=== PATIENT | female | born 1985 | race Caucasian/White ===

== ENCOUNTER 2018-04-08 14:08 | Emergency (ER) | payer OTHER ==
[~2018-04-08] VITALS: Ht 154.9 cm; Wt 55.3 kg
[2018-04-08 14:12] VITALS: BP 157/102; Ht 154.9 cm; Wt 55.3 kg
== END 2018-04-08 15:40 | disposition home or self-care (01) ==
LOC: ED 14:08
DX: S20.01XA Contusion of right breast, initial encounter (principal); S00.412A Abrasion of left ear, initial encounter; F15.20 Other stimulant dependence, uncomplicated; Y04.8XXA Assault by other bodily force, initial encounter; Y93.89 Activity, other specified; Y92.89 Other specified places as the place of occurrence of the external cause; Y99.8 Other external cause status

== ENCOUNTER 2018-06-03 19:22 | Emergency (ER) | payer OTHER ==
[~2018-06-03] VITALS: Ht 154.9 cm; Wt 53.5 kg
[2018-06-03 19:26] VITALS: BP 160/99
== END 2018-06-03 20:26 | disposition left against medical advice (07) ==
LOC: ED 19:22
DX: Z53.21 Procedure and treatment not carried out due to patient leaving prior to being seen by health care provider (principal)

== ENCOUNTER 2018-08-07 21:15 | Emergency (ER) | payer OTHER | END 2018-08-07 22:17 | disposition left against medical advice (07) | LOC: ED 21:15 | DX: Z53.21 Procedure and treatment not carried out due to patient leaving prior to being seen by health care provider (principal) ==

== ENCOUNTER 2018-10-04 22:55 | Emergency (ER) | payer OTHER ==
[~2018-10-04] VITALS: Ht 144.8 cm; Wt 56.7 kg
[2018-10-04 23:02] VITALS: Ht 144.8 cm; Wt 56.7 kg
[2018-10-05 00:08] LABS: UA SPECIFIC GRAVITY >=1.030 (1.005-1.035); microscopic required? YES; urine erythrocyte NEGATIVE (NEGATIVE)
[2018-10-05 01:50] VITALS: BP 162/117
== END 2018-10-05 01:40 | disposition home or self-care (01) ==
LOC: ED 22:55
PROVIDERS: Emergency Medicine
DX: S05.12XA Contusion of eyeball and orbital tissues, left eye, initial encounter (principal); M54.2 Cervicalgia; N76.0 Acute vaginitis; N39.0 Urinary tract infection, site not specified; Y04.0XXA Assault by unarmed brawl or fight, initial encounter; Y93.89 Activity, other specified; Y92.89 Other specified places as the place of occurrence of the external cause; Y99.8 Other external cause status

== ENCOUNTER 2019-02-12 22:16 | Emergency (ER) | payer OTHER ==
[~2019-02-12] VITALS: Ht 154.9 cm; Wt 62.6 kg
[2019-02-12 22:28] VITALS: Ht 154.9 cm; Wt 62.6 kg
[2019-02-12 23:13] LABS: BASOPHIL % 0.4 % (0-2); PLATELET COUNT 227 x10^3mcL (130-400)
[2019-02-12 23:28] LABS: CALCIUM 8.2 mg/dL (8.5-10.1); CHLORIDE SERUM 104 mmol/L (98-107); CREATININE SERUM 0.6 mg/dL (0.6-1.0); GFR1 > 60 mL/min; GLUCOSE SERUM 104 mg/dL (74-106); POTASSIUM SERUM 3.8 mmol/L (3.5-5.1); SODIUM SERUM 138 mmol/L (136-145)
[2019-02-12 23:37] LABS: ALKALINE PHOSPHATASE 72 U/L (46-116); ALT/SGPT 20 U/L (14-59); AST/SGOT 16 U/L (15-37); TOTAL PROTEIN, SERUM 6.8 g/dL (6.4-8.2)
[2019-02-12 23:38] LABS: ALBUMIN 2.6 g/dL (3.4-5.0)
[2019-02-13 01:51] VITALS: BP 154/99
== END 2019-02-13 03:58 | disposition home or self-care (01) ==
LOC: ED 22:16
PROVIDERS: Emergency Medicine
DX: O26.891 Other specified pregnancy related conditions, first trimester (principal); O23.41 Unspecified infection of urinary tract in pregnancy, first trimester; G43.909 Migraine, unspecified, not intractable, without status migrainosus; I10 Essential (primary) hypertension; Z3A.00 Weeks of gestation of pregnancy not specified
CPT/HCPCS: J0696; J1200; J2765; J7030

== ENCOUNTER 2019-03-08 20:09 | Emergency (ER) | payer OTHER ==
[~2019-03-08] VITALS: Ht 149.9 cm; Wt 63.5 kg
[2019-03-08 20:25] VITALS: Ht 149.9 cm; Wt 63.5 kg
[2019-03-08 20:54] LABS: BASOPHIL % 0.4 % (0-2); PLATELET COUNT 256 x10^3mcL (130-400); RED CELL DISTRIBUTION WIDTH 13.2 % (11.5-14.5)
[2019-03-08 21:06] LABS: CALCIUM 8.3 mg/dL (8.5-10.1); CHLORIDE SERUM 102 mmol/L (98-107); CREATININE SERUM 0.5 mg/dL (0.6-1.0); GFR1 > 60 mL/min; GLUCOSE SERUM 82 mg/dL (74-106); POTASSIUM SERUM 3.7 mmol/L (3.5-5.1); SODIUM SERUM 135 mmol/L (136-145)
[2019-03-08 21:10] LABS: ALT/SGPT 11 U/L (14-59); AST/SGOT 8 U/L (15-37); TOTAL PROTEIN, SERUM 6.9 g/dL (6.4-8.2)
[2019-03-08 21:12] LABS: ALBUMIN 2.7 g/dL (3.4-5.0)
[2019-03-08 21:22] LABS: ALKALINE PHOSPHATASE 82 U/L (46-116)
[2019-03-09 00:44] VITALS: BP 143/101
== END 2019-03-09 00:44 | disposition short-term general hospital (02) ==
LOC: ED 20:09
PROVIDERS: Emergency Medicine
DX: O26.892 Other specified pregnancy related conditions, second trimester (principal); I16.1 Hypertensive emergency; F15.10 Other stimulant abuse, uncomplicated
CPT/HCPCS: J0360; J2060; J7030; Q0092

== ENCOUNTER 2019-03-10 15:28 | Emergency (ER) | payer OTHER | END 2019-03-10 15:34 | disposition left against medical advice (07) | LOC: ED 15:28 | DX: Z53.21 Procedure and treatment not carried out due to patient leaving prior to being seen by health care provider (principal) ==

== ENCOUNTER 2019-03-10 16:41 | Inpatient (IN) | payer OTHER ==
[~2019-03-10] VITALS: Ht 149.9 cm; Wt 66.3 kg
--- NOTE | 2019-03-10 16:53 | NUR ---
PT RECEIVED TO T1, PT CALLED 911 BECAUSE SHE HEARD VOICES IN HER HEAD. PT A/AX4 PT IS 25 WEEKS , STATES "IM 6 MONTHS " "I WAS HERE THIS MORNING" PT ADMITS TO LAST USING METH YESTERDAY PT WAS PICKED UP AT [facility] IN THE [facility], [facility] [address] TO [facility] DUE TO PT HAD INFORMED THEM THAT SHE WAS TX FROM [place] YESTERDAY TO THEIR FACILITY, HOWEVER PT STARTED YELLING AT MEDICS TO TAKE HER TO [facility], PT WAS BIBA TO [place] PER PT REQUEST. PT IN NO DISTRESS SHE IS ANSWERING ALL QUESTIONS APPROP, PLACED ON ALL MONITORS, DR GONZALEZ AT BEDSIDE MSE DONE.
--- NOTE | 2019-03-10 17:09 | NUR ---
PT MADE AWARE TO PROVIDE URINE SPECIMEN DANIA
--- NOTE | 2019-03-10 17:09 | NUR ---
PT MEDICATED PER MD ORDER
[2019-03-10 17:20] LABS: BASOPHIL % 0.3 % (0-2); PLATELET COUNT 237 x10^3mcL (130-400); RED CELL DISTRIBUTION WIDTH 13.1 % (11.5-14.5)
[2019-03-10 17:30] LABS: CALCIUM 8.1 mg/dL (8.5-10.1); CARBON DIOXIDE 24.7 mmol/L (21-32); CHLORIDE SERUM 104 mmol/L (98-107); CREATININE SERUM 0.6 mg/dL (0.6-1.0); GFR1 > 60 mL/min; GLUCOSE SERUM 84 mg/dL (74-106); POTASSIUM SERUM 3.9 mmol/L (3.5-5.1); SODIUM SERUM 134 mmol/L (136-145)
[2019-03-10 17:34] LABS: ALBUMIN 2.7 g/dL (3.4-5.0); ALKALINE PHOSPHATASE 81 U/L (46-116); ALT/SGPT 19 U/L (14-59); AST/SGOT 15 U/L (15-37); BILIRUBIN TOTAL 0.4 mg/dL (0.20-1.00); MAGNESIUM 1.8 mg/dL (1.8-2.4); TOTAL PROTEIN, SERUM 6.9 g/dL (6.4-8.2)
[2019-03-10 17:54] LABS: UA SPECIFIC GRAVITY 1.015 (1.005-1.035); microscopic required? YES; urine erythrocyte NEGATIVE (NEGATIVE)
--- NOTE | 2019-03-10 17:55 | NUR ---
PT INFORMED SHE HAS A VISITOR NAMED ASIA, REPORTING "MY BOYFRIEND AND I ARE ON BAD TERMS DON'T LET HIM IN"
--- NOTE | 2019-03-10 17:57 | NUR ---
PT NOTED TO BE YELLING AT STAFF ASKING TO USE A PHONE TO CALL HER MOM, PT ALSO HALLUCINATED STATING "WORMS ARE ON MY SKIN" PT ASKED TO REMAIN IN BED FOR HER SAFETY, PT NOT COOPERATIVE AT THIS TIME, PT PROVIDED PHONE STANDING IN THE CORNER OF THE , MD GONZALEZ MADE AWARE
--- NOTE | 2019-03-10 18:02 | NUR ---
PT NOW STATING "NO HE IS FINE I WANT MY BOYFRIEND IN THE ROOM OR I WON'T SIT DOWN" PT AGREED TO REMAIN CALM AND COOPERATIVE FOR HER SAFETY AND TO REMAIN IN THE BED SO SHE DOESN'T FALL, PT AGREED, PT IN THE BED AT THIS TIME AND NOTED TO BE CRYING
[2019-03-10 18:03] LABS: AMPHETAMINE QUAL UR POSITIVE (See below)
--- NOTE | 2019-03-10 18:03 | NUR ---
SPOUSE AT BEDSIDE
--- NOTE | 2019-03-10 18:05 | NUR ---
PT BECOMING MORE AGITATED STATING SHE WANTS TO LEAVE MD CARLOS KISER MADE AWARE
--- NOTE | 2019-03-10 18:22 | NUR ---
EKG IN PROGRESS
--- NOTE | 2019-03-10 18:22 | NUR ---
MD GONZALEZ AT BEDSIDE DISCUSSING PLAN OF CARE WITH PT
--- NOTE | 2019-03-10 18:29 | NUR ---
PT MEDICATED PER MD ORDER, SEE EMAR, RESPIRATIONS EVEN ADN UNLABORED, SKIN PINK DRY WARM, PT CALM AND COOPERATIVE AT THIS TIME
--- NOTE | 2019-03-10 18:58 | NUR ---
SISTER, ALEXA, AT BEDSIDE
--- NOTE | 2019-03-10 18:58 | NUR ---
PT ASLEEP BUT AROUSABLE IN POSITION OF COMFORT, RESPIRATIONS EVEN AND UNLABORED, WILL CONTINUE TO MONITOR
--- NOTE | 2019-03-10 19:12 | NUR ---
REPORT GIVEN TO DEXTER BECK RN, WHO IS RESUMING CARE OF PT AT THIS TIME
--- NOTE | 2019-03-10 19:14 | NUR ---
ER CALLED TO GIVE REPORT, ASKED TO CALL BACK IN 10 MINUTES.
--- NOTE | 2019-03-10 19:16 | NUR ---
RECEIVED SBAR FROM GENARO HEDRICK. PATIENT TO BE ADMITTED FOR METH ABUSE DURING . PT SLEEPING IN BED IN POSITION OF COMFORT. FAMILY AT BEDSIDE. REPORT TO BE CALLED TO GENARO JULIAN TO ASSUME CARE AT THIS TIME.
--- NOTE | 2019-03-10 19:23 | NUR ---
SPOKE WITH GENARO MCKEON FROM [facility] REGARDING FAXING OVER LABS FROM PRIOR ADMISSION UPON REQUEST. WILL FOLLOW UP.
--- NOTE | 2019-03-10 19:24 | NUR ---
RECEIVED REPORT FROM ER NURSEDEXTER. AWAITING PTS ARRIVAL.
--- NOTE | 2019-03-10 19:28 | NUR ---
REPORT GIVEN TO GENARO JULIAN TO ASSUME CARE.
[2019-03-10 19:30] LABS: T3 TOTAL 1.44 ng/mL
[2019-03-10 19:39] LABS: FREE T4 0.87 ng/dL (0.76-1.46); FREE THYROXINE INDEX 2.9 ug/dL (1.4-4.5); T4(THYROXINE) 10.5 ug/dL (4.7-13.3)
--- NOTE | 2019-03-10 19:40 | NUR ---
RECEIVED PT FROM ED VIA [facility], CAME IN DUE TO DIZZINESS. AAOX4. PUPILS ARE 6MM, BRISK, REACTIVE TO LIGHT. DENIES HEADACHE/DIZZINESS. ABLE TO FOLLOW COMMANDS. C/O MILD SOB, LUNG SOUNDS CTA. O2 SAT=99%. DENIES CHEST PAIN/PRESSURE, SINUS TACHYCARDIA ON THE MONITOR, HR AT 114. PALE. PULSES ARE PALPABLE. DENIES ABDOMINAL DISCOMFORT. VOIDS. STATED THAT HER LAST USE OF METH WAS YESTERDAY AND THAT SHE IS 6 MONTHS AND 1 WEEK . IV SITE ON THE LEFT WRIST IS PATENT AND INTACT. SIDE RAILS UPX2. CALL LIGHT ON REACH. PRIMARY NURSE ELIEL AT BEDSIDE FOR CONTINUITY OF CARE
--- NOTE | 2019-03-10 19:41 | NUR ---
PT CLEARED FOR ADMISSION PER DR GONZALEZ. PT TRANSFERRED ON FULL CM WITH GENARO NOWAK AND ASHA, TECH AND FMAILY MEMBER. PT AAOX4. RESP E/U. VSS AT TIME OF TRANSFER. NAD NOTED EN ROUTE TO TELE FLOOR.
[2019-03-10 19:52] VITALS: BP 154/108
[2019-03-10 19:59] VITALS: Ht 149.9 cm; Wt 66.3 kg
--- NOTE | 2019-03-10 20:01 | NUR ---
PT RESTING COMFORTABLY, EX BOYFRIEND IS AT BEDSIDE. DR AT BEDSIDE. MADE DR AWARE PT WANTS OUTSIDE FOOD. AWAITING ORDERS. BED IN LOWEST POSITION. CALL LIGHT WITHIN REACH. WILL CONTINUE TO MONITOR.
--- NOTE | 2019-03-10 21:50 | NUR ---
PT C/O OF HEADACHE. WILL MEDICATE WITH TYLENOL PER MAR ORDER.
--- NOTE | 2019-03-10 23:54 | NUR ---
PT IS RESTING COMFORTABLY IN BED WITH EYES CLOSED, BUT EASILY AROUASBLE WHEN SPOKEN TO. BREATHING IS EVEN AND UNLABORED ON RA. NO SIGNS OF RESP. DISTRESS. BED IN LOWEST POSITION. CALL LIGHT WITHIN REACH. WILL CONTINUE TO MONITOR.
--- NOTE | 2019-03-11 02:01 | NUR ---
PT IS RESTING COMFORTABLY IN BED, BUT EASILY AROUSABLE WHEN SPOKEN TO. BREATHING IS EVEN AND UNLABORED ON RA. NO SIGNS OF RESP. DISTRESS. BED IN LOWEST POSITION. CALL LIGHT WITHIN REACH. WILL CONTINUE TO MONITOR.
[2019-03-11 04:24] VITALS: BP 126/83
--- NOTE | 2019-03-11 05:55 | NUR ---
PT SLEPT IN LONG INTERVALS THROUGHOUT THE NIGHT AND COMPLIED WITH NURSING CARE WITH NO ACUTE EVENTS OCCURRING DURING THE SHIFT. COMFORT AND SAFETY MEASURES MAINTAINED. ALL NEEDS ASSESSED AND ATTENDED TO. WILL CONTINUE TO MONITOR AND ENDORSE CARE TO DAY SHIFT NURSE.
[2019-03-11 06:26] LABS: BASOPHIL % 0.4 % (0-2); PLATELET COUNT 207 x10^3mcL (130-400); RED CELL DISTRIBUTION WIDTH 13.1 % (11.5-14.5)
[2019-03-11 07:08] LABS: CALCIUM 7.8 mg/dL (8.5-10.1); CARBON DIOXIDE 21.5 mmol/L (21-32); CHLORIDE SERUM 106 mmol/L (98-107); CREATININE SERUM 0.6 mg/dL (0.6-1.0); GFR1 > 60 mL/min; GLUCOSE SERUM 72 mg/dL (74-106); MAGNESIUM 1.9 mg/dL (1.8-2.4); PHOSPHOROUS 3.8 mg/dL (2.5-4.9); POTASSIUM SERUM 3.8 mmol/L (3.5-5.1); SODIUM SERUM 137 mmol/L (136-145)
--- NOTE | 2019-03-11 07:25 | NUR ---
RECEIVED PATIENT AOX4, NOT IN DISTRESS, TELE 8 , ST,106, PALPABLE PULSES, NO EDEMA , CTA ON BLF, GRAVID UTERUS, ACTIVE BS, VOIDS WELL, NO WEAKNESS, FULL ROM, SKIN DRY AND INTACT, NO PAIN AT THIS TIME, MOOD APPROPRIATE, IV INTACT AND PATENT, SL, LW. CALL LIGHT WITHIN REACH . BED AT LOWEST POSITION.
[2019-03-11 08:24] VITALS: BP 124/80
--- NOTE | 2019-03-11 09:28 | NUR ---
SEEN PATIENT ASLEEP, RESPONSIVE TO VERBAL STIMULI AND COMMAND. MOOD APPROPRIATE, PATIENT PO MEDICATIONS TAKEN. CALL LIGHT WITHIN REACH BED AT LOWEST POSITION.
--- NOTE | 2019-03-11 11:15 | NUR ---
DR GARCIA MADE AWARE REGARDING CALCIUM RESULTS.
--- NOTE | 2019-03-11 11:39 | NUR ---
PATIENT REQUESTED TO TAKE SHOWER. DR GARCIA MADE AWARE.
[2019-03-11 12:42] VITALS: BP 125/80
[2019-03-11 16:28] VITALS: BP 127/77
--- NOTE | 2019-03-11 17:55 | NUR ---
SEEN AOX4, NOT IN DISTRESS, ANCEF INFUSING WELL AT 200CC/HR, TO SIVAN PICCLINE, NO REDNESS OR INFILTRATION. RED TAP FLUSHED WITH NS, PATENT, PURPLE TAP UNABLE TO FLUSH DUE TO RESISTANCE. CALL LIGHT WITHIN REACH. BED AT LOWEST POSITION.
--- NOTE | 2019-03-11 18:36 | NUR ---
PATIENT MADE AWARE THAT MONITORING WILL BE DONE OUTPATIENT EXPLAINED BY DR GARCIA.
--- NOTE | 2019-03-11 19:10 | NUR ---
RECEIVED REPORT FROM DAY SHIFT NURSE, CHARU LAM. PT IS AAOX4. SPEECH IS CLEAR. DENIES JOSHI. ON TELE #8 [address] SR 78. DENIES CHEST PAIN/PRESSURE. PULSES ARE PALPABLE. NO EDEMA NOTED. BREATHING IS EVEN AND UNLABORED ON RA. LUNG SOUNDS CTA. NO SIGNS OF RESP DISTRESS. ABD IS SOFT AND NONDISTENDED. BS ACTIVE. DENIES N/V/D. VOIDS FREELY. DENIES DYSURIA. AMBULATORY. SKIN INTACT. DENIES PAIN AT THIS TIME. FRIEND AT BEDSIDE. IV TO LW SL, DRY AND INTAT. NO ERYTHEMA NOTED. BED IN LOWEST POSITION. CALL LIGHT WITHIN REACH. WILL CONTINUE TO MONITOR.
[2019-03-11 19:23] VITALS: BP 155/96
--- NOTE | 2019-03-11 20:05 | NUR ---
PT C/O JOSHI. WILL MEDICATE WITH TYLENOL PRN PER MAR ORDER.
--- NOTE | 2019-03-11 21:00 | NUR ---
ROUTINE MEDICATIONS WERE GIVEN AND TOLERATED WELL. NO ACUTE DISTRESS NOTED. MEDICATED WITH TYLENOL PRN PER MAY ORDER FOR C/O JOSHI. WILL REASSESS AND CHECK EFFECTIVENESS. BREATHING IS EVEN AND UNLABORED ON RA. NO SIGNS OF RESP. DISTRESS. BED IN LOWEST POSITION. CALL LIGHT WITHIN REACH. WILL CONTINUE TO MONITOR.
--- NOTE | 2019-03-11 23:13 | NUR ---
PT IS RESTING COMFORTABLY IN BED, ON PHONE WITH FRIEND. BREATHING IS EVEN AND UNLABORED ON RA. NO SIGNS OF RESP. DISTRESS. DENIES JOSHI. DENIES PAIN AT THIS TIME. BED IN LOWEST POSITION. CALL LIGHT WITHIN REACH. WILL CONTINUE TO MONITOR.
--- NOTE | 2019-03-12 03:31 | NUR ---
PT RESTING COMFORTABLY IN BED WITH EYES CLOSED, BUT EASILY AROUSABLE WHEN SPOKEN TO. BREATHING IS EVEN AND UNLABORED ON RA. NO SIGNS OF RESP. DISTRESS. BED IN LOWEST POSITION. CALL LIGHT WITHIN REACH. WILL CONTINUE TO MONITOR.
[2019-03-12 04:55] VITALS: BP 147/84
[2019-03-12 06:36] LABS: BASOPHIL % 0.2 % (0-2); PLATELET COUNT 195 x10^3mcL (130-400)
--- NOTE | 2019-03-12 06:50 | NUR ---
PT SLEPT IN LONG INTERVALS THROUGHOUT THE NIGHT AND COMPLIED WITH NURSING CARE WITH NO ACUTE EVENTS OCCURRING DURING THE SHIFT. ALL NEEDS ASSESSED AND ATTENDED TO. COMFORT AND SAFETY MEASURES MAINTAINED. WILL CONTINUE TO MONITOR AND ENDORSE CARE TO DAY SHIFT NURSE.
--- NOTE | 2019-03-12 07:40 | NUR ---
RECEIVED PATIENT SLEEPING IN BED, AROUSABLE. PATIENT A\O X4, DENIES JOSHI AT THIS TIME. TELE MONITOR IN PLACE, DENIES CHEST PAIN. LUNG SOUNDS CTA, DENIES SOB, ON ROOM AIR. PATIENT ABLE TO VOID FREELY. IV TO LW SALINE LOCK, CDI&PATENT, NO S/S OF INFILTRATION. CALL LIGHT WITHIN REACH, BED IN LOW POSITION, WILL CONTINUE TO MONITOR.
[2019-03-12 09:04] VITALS: BP 101/71
[2019-03-12] MEDS ORDERED: CIPRO500 MG PO (10:47)
[2019-03-12] MEDS ORDERED: LABETALOL HCL100 MG PO (10:48)
[2019-03-12] MEDS ORDERED: PRENATAL LOW IR1 TA1 PO (10:49)
[2019-03-12 11:32] VITALS: BP 118/79
[2019-03-12 11:46] VITALS: BP 118/79
[2019-03-12 12:02] LABS: CARBON DIOXIDE 23.2 mmol/L (21-32); CHLORIDE SERUM 105 mmol/L (98-107); CREATININE SERUM 0.5 mg/dL (0.6-1.0); GFR1 > 60 mL/min; GLUCOSE SERUM 72 mg/dL (74-106); MAGNESIUM 1.8 mg/dL (1.8-2.4); PHOSPHOROUS 3.6 mg/dL (2.5-4.9); POTASSIUM SERUM 3.9 mmol/L (3.5-5.1); SODIUM SERUM 134 mmol/L (136-145)
--- NOTE | 2019-03-12 12:15 | NUR ---
PATIENT SLEEPING IN BED AT THIS TIME. NO ACUTE DISTRESS NOTED. ALL NEEDS MET THIS TIME, WILL CONTINUE TO MONITOR.
--- NOTE | 2019-03-12 13:25 | NUR ---
PATIENT IS TO BE DISCHARGED HOME TODAY. PATIENT RECEIVED COPY OF DISCHARGE INSTRUCTIONS, PATIENT UNDERSTANDS AND AGREES WITH DISCHARGE INSTRUCTIONS & PLAN OF CARE, INCLUDING MEDICATIONS AND FOLLOW UP CARE. ALL QUESTIONS AND CONCERNS ADDRESSED. PATIENT IS AWAITING FOR TRANSPORTATION AT THIS TIME, WILL CONTINUE TO MONITOR.
--- NOTE | 2019-03-12 15:00 | NUR ---
PATIENT WAS D/C HOME. GENARO PECK REMOVED IV & ARMBANDS. TELE MONITOR RETURNED TO [employer].
== END 2019-03-12 14:49 | disposition home or self-care (01) | DRG 566 ==
LOC: ED 16:41 → DU 18:40
PROVIDERS: Emergency Medicine; ADMIT Internal Medicine
DX: O99.322 Drug use complicating pregnancy, second trimester (principal); G92 Toxic encephalopathy; E87.1 Hypo-osmolality and hyponatremia; F15.121 Other stimulant abuse with intoxication delirium; O10.912 Unspecified pre-existing hypertension complicating pregnancy, second trimester; E83.51 Hypocalcemia; O23.12 Infections of bladder in pregnancy, second trimester; O25.12 Malnutrition in pregnancy, second trimester; Z3A.25 25 weeks gestation of pregnancy; O99.352 Diseases of the nervous system complicating pregnancy, second trimester; G43.909 Migraine, unspecified, not intractable, without status migrainosus; O99.282 Endocrine, nutritional and metabolic diseases complicating pregnancy, second trimester; O99.012 Anemia complicating pregnancy, second trimester; D64.9 Anemia, unspecified; R00.0 Tachycardia, unspecified
CPT/HCPCS: 83880; 84439; G0378; J0696; J2060; J7030; J7050

== ENCOUNTER 2019-06-13 23:56 | Emergency (ER) | payer OTHER ==
[~2019-06-13] VITALS: Ht 152.4 cm; Wt 62.8 kg
[~2019-06-13 23:56] MED LIST: CIPRO500 MG PO; LABETALOL HCL100 MG PO; PRENATAL LOW IR1 TA1 PO
[2019-06-14 00:06] VITALS: Ht 152.4 cm; Wt 62.8 kg
[2019-06-14 01:02] LABS: BASOPHIL % 0.5 % (0-2); PLATELET COUNT 383 x10^3mcL (130-400); RED CELL DISTRIBUTION WIDTH 18.9 % (11.5-14.5)
[2019-06-14 01:05] LABS: AMPHETAMINE QUAL UR NONE DETECTED (See below)
[2019-06-14 01:36] LABS: CALCIUM 8.8 mg/dL (8.5-10.1); CARBON DIOXIDE 27.6 mmol/L (21-32); CHLORIDE SERUM 108 mmol/L (98-107); CREATININE SERUM 0.7 mg/dL (0.6-1.0); GFR1 > 60 mL/min; GLUCOSE SERUM 85 mg/dL (74-106); POTASSIUM SERUM 3.6 mmol/L (3.5-5.1); SODIUM SERUM 144 mmol/L (136-145)
[2019-06-14 01:41] LABS: ALKALINE PHOSPHATASE 124 U/L (46-116); ALT/SGPT 18 U/L (14-59); AST/SGOT 18 U/L (15-37); BILIRUBIN TOTAL 0.3 mg/dL (0.20-1.00)
[2019-06-14 03:03] LABS: UA SPECIFIC GRAVITY >=1.030 (1.005-1.035); microscopic required? YES; urine erythrocyte 3+ (NEGATIVE)
[2019-06-14 04:24] VITALS: BP 172/88
== END 2019-06-14 04:24 | disposition home or self-care (01) ==
LOC: ED 23:56
PROVIDERS: Emergency Medicine
DX: I10 Essential (primary) hypertension (principal); R20.2 Paresthesia of skin; G43.909 Migraine, unspecified, not intractable, without status migrainosus
CPT/HCPCS: 36415

== ENCOUNTER 2019-09-15 23:49 | Emergency (ER) | payer OTHER ==
[~2019-09-15] VITALS: Ht 154.9 cm; Wt 63.6 kg
[2019-09-16] VITALS: Ht 154.9 cm; Wt 63.6 kg
[2019-09-16 02:12] VITALS: BP 141/91
== END 2019-09-16 02:12 | disposition home or self-care (01) ==
LOC: ED 23:49
DX: R20.2 Paresthesia of skin (principal); G43.909 Migraine, unspecified, not intractable, without status migrainosus

== ENCOUNTER 2019-10-11 17:46 | Emergency (ER) | payer OTHER ==
[~2019-10-11] VITALS: Ht 144.8 cm; Wt 63.5 kg
[2019-10-11 17:51] VITALS: Ht 144.8 cm; Wt 63.5 kg
[2019-10-11 18:39] LABS: UA SPECIFIC GRAVITY >=1.030 (1.005-1.035); microscopic required? YES; urine erythrocyte 3+ (NEGATIVE)
[2019-10-11 18:46] LABS: BASOPHIL % 0.3 % (0-2); PLATELET COUNT 242 x10^3mcL (130-400)
[2019-10-11 18:48] LABS: CALCIUM 8.8 mg/dL (8.5-10.1); CARBON DIOXIDE 27.1 mmol/L (21-32); CHLORIDE SERUM 106 mmol/L (98-107); CREATININE SERUM 0.8 mg/dL (0.6-1.0); GFR1 > 60 mL/min; GLUCOSE SERUM 108 mg/dL (74-106); POTASSIUM SERUM 3.6 mmol/L (3.5-5.1); SODIUM SERUM 141 mmol/L (136-145)
[2019-10-11 18:53] LABS: ALBUMIN 3.6 g/dL (3.4-5.0); ALKALINE PHOSPHATASE 103 U/L (46-116); ALT/SGPT 21 U/L (14-59); AST/SGOT 18 U/L (15-37); BILIRUBIN TOTAL 0.8 mg/dL (0.20-1.00); TOTAL PROTEIN, SERUM 7.5 g/dL (6.4-8.2)
[2019-10-11 20:15] VITALS: BP 140/99
== END 2019-10-11 20:15 | disposition home or self-care (01) ==
LOC: ED 17:46
PROVIDERS: Emergency Medicine
DX: N93.8 Other specified abnormal uterine and vaginal bleeding (principal); G43.909 Migraine, unspecified, not intractable, without status migrainosus
CPT/HCPCS: Q0092

== ENCOUNTER 2020-05-17 16:22 | Emergency (ER) | payer MEDICAID ==
[~2020-05-17] VITALS: Ht 154.9 cm; Wt 62.6 kg
[2020-05-17 16:30] VITALS: Ht 154.9 cm; Wt 62.6 kg
[2020-05-17 16:58] VITALS: BP 131/98
== END 2020-05-17 17:15 | disposition left against medical advice (07) ==
LOC: ED 16:22
DX: M54.5 Low back pain (principal); G43.909 Migraine, unspecified, not intractable, without status migrainosus; F15.10 Other stimulant abuse, uncomplicated
CPT/HCPCS: J1885